=== PATIENT | female | born 1945 | race Caucasian/White ===

== ENCOUNTER → 2016-07-11 | Outpatient (CLI) | payer OTHER | END | disposition home or self-care (01) | LOC: CVU 11:31 | PROVIDERS: ATTEND Internal Medicine Cardiovascular Disease | DX: I10 Essential (primary) hypertension (principal); I49.40 Unspecified premature depolarization; I65.29 Occlusion and stenosis of unspecified carotid artery; I73.9 Peripheral vascular disease, unspecified | CPT/HCPCS: 93306; 93880; 93922; 93925 ==

== ENCOUNTER 2017-03-20 11:13 | Inpatient (IN) | payer OTHER ==
[~2017-03-20] VITALS: Ht 154.9 cm; Wt 60.6 kg
[~2017-03-20 11:13] MED LIST: ARFO15VI INH; ASPI-496 PO; BUDE0.5A INH; CALC-451 PO; FURO20TA3 PO; METO25TA35 PO; SIMV20TA3 PO; SPIR25TA3 PO; TIOT18CA INH
[2017-03-20] MEDS ORDERED: SODIUM CHLORIDE 0.9% 1,000 ML IV ONE ×2 (13:23→18:22)
[2017-03-20] MEDS ORDERED: ONDANSETRON 2MG/ML, 2ML IVPush ONE (13:30)
[2017-03-20] MEDS ORDERED: SODIUM CHLORIDE 0.9% 1,000ML IVBOLUS ONE (13:30)
[2017-03-20] MEDS ORDERED: SODIUM CHLORIDE FLUSH 10ML SYR IVF ONE (13:30)
[2017-03-20] MEDS ORDERED: HYDROmorphone 1 MG/ML, 1ML ONE ×2 (13:35→17:53)
[2017-03-20] MEDS ORDERED: ONDANSETRON 2MG/ML, 2ML ONE ×2 (13:35→20:06)
[2017-03-20] MEDS: HYDROmorphone 1 MG/ML, 1ML IVPush PRN ×2 (13:52→17:57)
[2017-03-20 13:59] LABS: BASOPHILS # (AUTO) 0.02 x10^3/uL (0-0.1); BASOPHILS % (AUTO) 0 % (0-1); EOSINOPHILS # (AUTO) 0.05 x10^3/uL (0-0.4); EOSINOPHILS % (AUTO) 0 % (1-7); LYMPHOCYTES # (AUTO) 1.23 x10^3/uL (1-3.4); LYMPHOCYTES % (AUTO) 8 % (22-44); MD NO; MEAN CORPUSCULAR HEMOGLOBIN 31.2 pg (27.0-34.8); MEAN CORPUSCULAR HGB CONC 32.8 g/dL (32.4-35.8); MEAN CORPUSCULAR VOLUME 94.9 fL (80-100); MEAN PLATELET VOLUME 8.6 fL (7.4-10.4); MONOCYTES % (AUTO) 5 % (2-9); NEUTROPHILS # (AUTO) 13.37 x10^3/uL (1.8-6.8); NEUTROPHILS % (AUTO) 87 % (42-75); PLATELET COUNT 264 x10^3/uL (130-400); RED BLOOD COUNT 4.32 x10^6/uL (3.82-5.3); RED CELL DISTRIBUTION WIDTH 12.3 % (9.6-15.2)
[2017-03-20 14:10] LABS: ALANINE AMINOTRANSFERASE 23 U/L (12-78); ALBUMIN 3.3 g/dL (3.4-5.0); ANION GAP 7 mmol/L (5-15); CALCIUM 9.1 mg/dL (8.5-10.1); CHLORIDE 101 mmol/L (98-107); CREATININE 0.83 mg/dL (0.55-1.02)
[2017-03-20 14:12] LABS: ALKALINE PHOSPHATASE 100 U/L (45-117); BILIRUBIN,TOTAL 0.4 mg/dL (0.2-1.0); TOTAL PROTEIN 7.4 g/dL (6.4-8.2)
[2017-03-20 14:23] LABS: MICROSCOPIC AUTO
[2017-03-20 14:32] LABS: CULTURE INDICATED? YES
[2017-03-20] MEDS ORDERED: OMNIPAQUE 350 MG/ML, 100ML BOTTLE ONE (17:12)
[2017-03-20] MEDS ORDERED: SODIUM CHLORIDE FLUSH 10ML SYR IVF PRN (18:30)
[2017-03-20] MEDS ORDERED: ONDANSETRON 2MG/ML, 2ML IVPush PRN ×2 (19:00→21:00)
[2017-03-20] MEDS ORDERED: BISACODYL 10 MG SUPP PR PRN (19:00)
[2017-03-20] MEDS: PIPERACILLIN/TAZO/PMX 3.375GM 50 ML IV SCH (19:00)
[2017-03-20] MEDS ORDERED: morphine SULFATE 10 MG/ML, 1ML IVPush PRN (19:00)
[2017-03-20] MEDS ORDERED: MIDAZOLAM 1 MG/ML, 2ML ONE (19:39)
[2017-03-20] MEDS ORDERED: FENTANYL PF 250 MCG/5ML ONE (19:39)
[2017-03-20] MEDS ORDERED: BUPIVACAINE/PF 0.5% ONE (19:59)
[2017-03-20] MEDS ORDERED: PROPOFOL 10 MG/ML, 20ML ONE (20:06)
[2017-03-20] MEDS ORDERED: NEOSTIGMINE 1 MG/ML, 10ML ONE (20:06)
[2017-03-20] MEDS ORDERED: KETOROLAC 30 MG/1 ML ONE (20:06)
[2017-03-20] MEDS ORDERED: GLYCOPYRROLATE 0.2MG/1ML, 5ML ONE (20:06)
[2017-03-20] MEDS ORDERED: DEXAMETHASONE 4 MG/ML, 1ML ONE (20:06)
[2017-03-20] MEDS ORDERED: SUCCINYLCHOLINE 20 MG/ML, 10ML ONE (20:06)
[2017-03-20] MEDS ORDERED: EPINEPHRINE 1 MG/ML, 1ML ONE (20:06)
[2017-03-20] MEDS ORDERED: ROCURONIUM 10 MG/ML,10ML ONE (20:06)
[2017-03-20] MEDS ORDERED: LIDOCAINE GEL 2%, 5ML ONE (20:08)
[2017-03-20] MEDS ORDERED: BUPIVACAINE/PF-EPI 0.5% 1:200K IM ONE (20:21)
[2017-03-20] MEDS ORDERED: LIDOCAINE-MPF 2% ,5ML ONE (20:44)
[2017-03-20] MEDS ORDERED: FENTANYL PF 100 MCG/2ML IV PRN (21:00)
[2017-03-20] MEDS ORDERED: PROMETHAZINE 25 MG/ML, 1ML IV PRN (21:00)
[2017-03-20] MEDS ORDERED: HYDROmorphone 1 MG/ML, 1ML IV PRN (21:00)
[2017-03-20] MEDS ORDERED: OXYcodone 5 MG/5 ML ORAL.SOL UDC PO PRN (21:00)
[2017-03-20] MEDS ORDERED: BUDESONIDE 0.5 MG/2 ML INHA INH SCH (21:00)
[2017-03-20] MEDS ORDERED: MIDAZOLAM 1 MG/ML, 5ML IV PRN (21:00)
[2017-03-20] MEDS ORDERED: MEPERIDINE/PF 25MG/0.5ML IVPush PRN (21:00)
[2017-03-20] MEDS ORDERED: ACETAMINOPHEN 325 MG TABLET PO PRN ×2 (21:00→23:45)
[2017-03-20] MEDS ORDERED: hydrALAzine 20 MG/ML, 1ML IV PRN ×2 (21:00→23:45)
[2017-03-20] MEDS ORDERED: LABETALOL 5MG/ML, 20ML IV PRN (21:00)
[2017-03-20] MEDS ORDERED: SIMVASTATIN 20 MG TABLET PO SCH (21:00)
[2017-03-20] MEDS ORDERED: ALBUTEROL/IPRATROPIUM 2.5MG/0.5MG, 3 ML NPPB PRN (21:00)
[2017-03-20] MEDS ORDERED: SUGAMMADEX 200 MG/2 ML IVPush ONE (21:05)
[2017-03-20] MEDS ORDERED: OXYcodone 5 MG/5 ML ORAL.SOL UDC ONE (21:30)
[2017-03-20] MEDS ORDERED: ACETAMINOPHEN 650 MG/20.3 ML UDC ONE (21:30)
[2017-03-20] MEDS ORDERED: FENTANYL PF 100 MCG/2ML ONE (21:57)
[2017-03-20 22:48] VITALS: BP 137/72
[2017-03-20 23:20] VITALS: BP 122/66
[2017-03-20] MEDS ORDERED: HEPARIN 5,000 UNITS/ML, 1ML SQ SCH (23:45)
[2017-03-20] MEDS ORDERED: ACETAMINOPHEN 650 MG SUPP PR PRN (23:45)
[2017-03-20] MEDS ORDERED: POTASSIUM CHLORIDE 20 MEQ in D5%-0.45% NACL 1,000 ML IV SCH (23:45)
[2017-03-21] MEDS: PIPERACILLIN/TAZO/PMX 3.375GM 50 ML IV SCH ×2 (00:42→07:24)
[2017-03-21] MEDS: HYDROcodone/APAP 5/325 TABLET PO PRN ×2 (01:34→11:47)
[2017-03-21 02:59] VITALS: BP 102/59
[2017-03-21 05:49] LABS: MEAN CORPUSCULAR HEMOGLOBIN 31.1 pg (27.0-34.8); MEAN CORPUSCULAR HGB CONC 32.7 g/dL (32.4-35.8); MEAN CORPUSCULAR VOLUME 95.2 fL (80-100); PLATELET COUNT 225 x10^3/uL (130-400); RED BLOOD COUNT 4.15 x10^6/uL (3.82-5.3); RED CELL DISTRIBUTION WIDTH 12.4 % (9.6-15.2)
[2017-03-21 06:12] LABS: CHLORIDE 103 mmol/L (98-107)
[2017-03-21 06:18] LABS: ALANINE AMINOTRANSFERASE 21 U/L (12-78); ALKALINE PHOSPHATASE 94 U/L (45-117); ANION GAP 6 mmol/L (5-15); BILIRUBIN,TOTAL 0.3 mg/dL (0.2-1.0); CALCIUM 8.2 mg/dL (8.5-10.1); CREATININE 1.06 mg/dL (0.55-1.02); TOTAL PROTEIN 6.7 g/dL (6.4-8.2)
[2017-03-21 06:29] LABS: BASOPHILS # (AUTO) 0.08 x10^3/uL (0-0.1); BASOPHILS % (AUTO) 1 % (0-1); EOSINOPHILS # (AUTO) 0.01 x10^3/uL (0-0.4); EOSINOPHILS % (AUTO) 0 % (1-7); LYMPHOCYTES # (AUTO) 0.66 x10^3/uL (1-3.4); LYMPHOCYTES % (AUTO) 4 % (22-44); MD SCAN; MONOCYTES # (AUTO) 0.13 x10^3/uL (0.2-0.8); MONOCYTES % (AUTO) 1 % (2-9); NEUTROPHILS # (AUTO) 16.11 x10^3/uL (1.8-6.8); NEUTROPHILS % (AUTO) 95 % (42-75)
[2017-03-21 07:22] VITALS: BP 120/71
[2017-03-21] MEDS ORDERED: METOPROLOL TARTRATE 25 MG TABLET PO SCH (09:00)
[2017-03-21] MEDS ORDERED: ARFORMOTEROL TARTRATE INH SCH (09:00)
[2017-03-21] MEDS ORDERED: FUROSEMIDE 20 MG TABLET PO SCH (09:00)
[2017-03-21] MEDS ORDERED: IPRATROPIUM 0.5 MG/2.5 ML INHA HHN SCH (09:00)
[2017-03-21] MEDS ORDERED: SPIRONOLACTONE 25 MG TABLET PO SCH (09:00)
[2017-03-21] MEDS ORDERED: CALCIUM/VITAMIN D3 250-125 TABLET PO SCH (09:00)
[2017-03-21 12:30] VITALS: BP 95/68
[2017-03-22] MEDS ORDERED: FISH OIL (03:47)
== END 2017-03-21 12:43 | disposition home or self-care (01) | DRG 853 ==
LOC: ED 13:55 → EDIP 18:22 → 4NOR 22:35
PROVIDERS: ADMIT Hospitalist; ATTEND Hospitalist
PROC: 0DTJ4ZZ Resection of Appendix, Percutaneous Endoscopic Approach (ICD-10-PCS; principal; 2017-03-20 19:00)
DX: A41.9 Sepsis, unspecified organism (principal); K35.3 Acute appendicitis with localized peritonitis; J96.10 Chronic respiratory failure, unspecified whether with hypoxia or hypercapnia; I11.0 Hypertensive heart disease with heart failure; I50.9 Heart failure, unspecified; D73.4 Cyst of spleen; E78.5 Hyperlipidemia, unspecified; J43.9 Emphysema, unspecified; K57.90 Diverticulosis of intestine, part unspecified, without perforation or abscess without bleeding; K66.0 Peritoneal adhesions (postprocedural) (postinfection); M47.9 Spondylosis, unspecified; Z87.891 Personal history of nicotine dependence; Z90.710 Acquired absence of both cervix and uterus; Z79.899 Other long term (current) drug therapy; Z88.5 Allergy status to narcotic agent
CPT/HCPCS: 36415; 74177; 80053; 81001; 83605; 83690; 85025; 87086; 88304; 93005; 96361; 96374; 96375; 96376; J0171; J1100; J1170; J1644; J1885; J2250; J2405; J2543; J2704; J2710; J3010; J3480; J3490; Q9967; J0330; J7030

== ENCOUNTER 2017-03-22 03:37 | Inpatient (IN) | payer OTHER ==
[~2017-03-22] VITALS: Ht 157.5 cm; Wt 54.0 kg
[2017-03-22] MEDS ORDERED: FISH OIL (03:47)
[2017-03-22] MEDS ORDERED: ONDANSETRON 2MG/ML, 2ML ONE (03:54)
[2017-03-22] MEDS ORDERED: morphine SULFATE 10 MG/ML, 1ML ONE ×2 (03:54→04:46)
[2017-03-22] MEDS ORDERED: methylPREDNISolone SOD SUCC 125 MG/2 ML ONE (03:58)
[2017-03-22] MEDS ORDERED: methylPREDNISolone SOD SUCC 125 MG/2 ML IVP ONE (04:00)
[2017-03-22] MEDS ORDERED: ONDANSETRON 2MG/ML, 2ML IVPush ONE (04:00)
[2017-03-22] MEDS ORDERED: SODIUM CHLORIDE 0.9% 1,000ML IVBOLUS ONE (04:00)
[2017-03-22] MEDS ORDERED: [UNRECOGNIZED DRUG - REMARK] MC SCH (04:00)
[2017-03-22] MEDS ORDERED: MORPHINE SULFATE 4 MG/ML, 1ML IVPush PRN (04:00)
[2017-03-22 04:08] LABS: BLOOD UREA NITROGEN 13 mg/dL (7-18)
[2017-03-22 04:16] LABS: IS PT STATUS REG ER OR PRE ER? YES
[2017-03-22 04:18] LABS: HEMATOCRIT 39.9 % (34.6-47.8); HEMOGLOBIN 13.1 g/dL (11.7-16.4); WHITE BLOOD COUNT 19.4 x10^3/uL (3.4-10)
[2017-03-22] MEDS ORDERED: morphine SULFATE 10 MG/ML, 1ML IVPush PRN (04:30)
[2017-03-22] MEDS ORDERED: OMNIPAQUE 350 MG/ML, 100ML BOTTLE ONE (04:35)
[2017-03-22] MEDS ORDERED: ACETAMINOPHEN 325 MG TABLET PO PRN (05:30)
[2017-03-22] MEDS ORDERED: ONDANSETRON 2MG/ML, 2ML IVPush PRN (05:30)
[2017-03-22] MEDS ORDERED: hydrALAzine 20 MG/ML, 1ML IVPush PRN (05:30)
[2017-03-22] MEDS ORDERED: NITROGLYCERIN 0.4 MG BOTTLE (25 TABS) SL PRN (05:30)
[2017-03-22 05:49] VITALS: BP 122/68
[2017-03-22 06:53] LABS: IS PT STATUS REG ER OR PRE ER? NO
[2017-03-22] MEDS ORDERED: IPRATROPIUM 0.5 MG/2.5 ML INHA NPPB SCH (07:30)
[2017-03-22] MEDS ORDERED: ALBUTEROL SULFATE 2.5 MG/3 ML NPPB SCH (07:30)
[2017-03-22] MEDS ORDERED: FUROSEMIDE 40 MG TABLET ONE (07:57)
[2017-03-22] MEDS ORDERED: ASPIRIN 81 MG TABLET EC ONE (07:57)
[2017-03-22] MEDS ORDERED: SPIRONOLACTONE 25 MG TABLET ONE (07:57)
[2017-03-22] MEDS ORDERED: METOPROLOL TARTRATE 25 MG TABLET ONE (07:57)
[2017-03-22 08:00] VITALS: BP 113/70
[2017-03-22] MEDS: CALCIUM/VITAMIN D3 250-125 TABLET PO SCH (08:04)
[2017-03-22] MEDS: SODIUM CHLORIDE 0.9% 1,000 ML IV SCH (08:04)
[2017-03-22] MEDS: FUROSEMIDE 20 MG TABLET PO SCH (08:05)
[2017-03-22] MEDS: METOPROLOL TARTRATE 25 MG TABLET PO SCH (08:05)
[2017-03-22] MEDS: SPIRONOLACTONE 25 MG TABLET PO SCH (08:05)
[2017-03-22] MEDS ORDERED: NITROGLYCERIN 5 MG/ML, 10ML ONE (08:12)
[2017-03-22] MEDS ORDERED: VERAPAMIL 2.5 MG/ML, 2ML ONE (08:12)
[2017-03-22] MEDS ORDERED: FENTANYL PF 100 MCG/2ML ONE (08:12)
[2017-03-22] MEDS ORDERED: TICAGRELOR 90 MG TABLET ONE (08:12)
[2017-03-22] MEDS ORDERED: MIDAZOLAM 1 MG/ML, 5ML ONE (08:12)
[2017-03-22] MEDS ORDERED: BIVALIRUDIN 250 MG ONE (08:13)
[2017-03-22] MEDS ORDERED: HEPARIN 1,000 UNITS/ML, 10ML ONE (08:13)
[2017-03-22] MEDS ORDERED: LIDOCAINE 2%, 20ML ONE (08:13)
[2017-03-22] MEDS ORDERED: ASPIRIN 81 MG TABLET EC PO SCH (09:00)
[2017-03-22] MEDS ORDERED: BUDESONIDE 0.5 MG/2 ML INHA INH SCH (09:00)
[2017-03-22 12:16] LABS: IS PT STATUS REG ER OR PRE ER? NO
[2017-03-22 15:20] VITALS: BP 95/64
[2017-03-22] MEDS ORDERED: ALBUTEROL SULFATE 2.5 MG/3 ML ONE (16:39)
[2017-03-22] MEDS: ALBUTEROL SULFATE 2.5 MG/3 ML NPPB PRN (16:56)
[2017-03-22 19:56] VITALS: BP 108/70
[2017-03-22] MEDS: TICAGRELOR 90 MG TABLET PO SCH (20:24)
[2017-03-22] MEDS: SIMVASTATIN 20 MG TABLET PO SCH (20:25)
[2017-03-23 00:17] VITALS: BP 103/64
[2017-03-23] MEDS: ALBUTEROL SULFATE 2.5 MG/3 ML NPPB PRN ×3 (00:32→14:20)
[2017-03-23 05:52] LABS: HEMATOCRIT 33.2 % (34.6-47.8); WHITE BLOOD COUNT 17.4 x10^3/uL (3.4-10)
[2017-03-23 06:02] LABS: BLOOD UREA NITROGEN 27 mg/dL (7-18)
[2017-03-23 06:53] VITALS: BP 116/75
[2017-03-23] MEDS ORDERED: methylPREDNISolone SOD SUCC 125 MG/2 ML ONE (07:54)
[2017-03-23] MEDS: morphine SULFATE 10 MG/ML, 1ML IVPush PRN ×4 (08:00→21:23)
[2017-03-23] MEDS: methylPREDNISolone SOD SUCC 125 MG/2 ML IVPush SCH ×3 (08:00→19:50)
[2017-03-23 08:12] LABS: ABG COLLECTION SITE RIGHT RADIAL; COLLATERAL CIRCULATION TESTING NORMAL
[2017-03-23] MEDS: SODIUM CHLORIDE 0.9% 1,000 ML IV SCH ×2 (09:05→23:51)
[2017-03-23] MEDS: METOPROLOL TARTRATE 25 MG TABLET PO SCH (09:05)
[2017-03-23] MEDS: SPIRONOLACTONE 25 MG TABLET PO SCH (09:05)
[2017-03-23] MEDS: ASPIRIN 81 MG TABLET EC PO SCH (09:06)
[2017-03-23] MEDS: TICAGRELOR 90 MG TABLET PO SCH ×2 (09:06→21:23)
[2017-03-23] MEDS: CALCIUM/VITAMIN D3 250-125 TABLET PO SCH (09:06)
[2017-03-23] MEDS: FUROSEMIDE 20 MG TABLET PO SCH (09:06)
[2017-03-23] MEDS: BUDESONIDE 0.5 MG/2 ML INHA INH SCH (10:18)
[2017-03-23] MEDS ORDERED: VANCOMYCIN PER PHARMACY MC PRN (11:00)
[2017-03-23] MEDS ORDERED: DIGOXIN 0.25 MG/ML, 2ML IVPush ONE (11:00)
[2017-03-23] MEDS ORDERED: PIPERACILLIN/TAZO 3.375 GM in SODIUM CHLORIDE 0.9% 50 ML IV SCH (12:00)
[2017-03-23] MEDS: PIPERACILLIN/TAZO 3.375 GM in SODIUM CHLORIDE 0.9% 50 ML IVPB SCH ×3 (12:18→23:51)
[2017-03-23] MEDS ORDERED: PHARMACOKINETIC MONITORING MC PRN (13:00)
[2017-03-23 13:05] VITALS: BP 94/60
[2017-03-23] MEDS: VANCOMYCIN PMX 1GM/200ML 200 ML IVPB SCH (13:08)
[2017-03-23] MEDS: ALBUTEROL SULFATE 2.5 MG/3 ML NPPB SCH (19:33)
[2017-03-23 19:38] VITALS: BP 106/62
[2017-03-23] MEDS: SIMVASTATIN 20 MG TABLET PO SCH (21:23)
[2017-03-24 01:07] VITALS: BP 100/60
[2017-03-24] MEDS: methylPREDNISolone SOD SUCC 125 MG/2 ML IVPush SCH ×4 (02:40→21:05)
[2017-03-24] MEDS: morphine SULFATE 10 MG/ML, 1ML IVPush PRN ×2 (03:17→10:09)
[2017-03-24] MEDS: ALBUTEROL SULFATE 2.5 MG/3 ML NPPB PRN (03:20)
[2017-03-24 04:46] LABS: HEMATOCRIT 33.7 % (34.6-47.8); HEMOGLOBIN 10.8 g/dL (11.7-16.4); WHITE BLOOD COUNT 14.1 x10^3/uL (3.4-10)
[2017-03-24 04:55] LABS: BLOOD UREA NITROGEN 22 mg/dL (7-18)
[2017-03-24] MEDS: PIPERACILLIN/TAZO 3.375 GM in SODIUM CHLORIDE 0.9% 50 ML IVPB SCH ×3 (05:25→18:03)
[2017-03-24 06:58] VITALS: BP 123/73
[2017-03-24] MEDS: ALBUTEROL SULFATE 2.5 MG/3 ML NPPB SCH ×4 (07:55→17:41)
[2017-03-24] MEDS: SPIRONOLACTONE 25 MG TABLET PO SCH (08:29)
[2017-03-24] MEDS: TICAGRELOR 90 MG TABLET PO SCH ×2 (08:29→21:00)
[2017-03-24] MEDS: ASPIRIN 81 MG TABLET EC PO SCH (08:29)
[2017-03-24] MEDS: CALCIUM/VITAMIN D3 250-125 TABLET PO SCH (08:29)
[2017-03-24] MEDS: METOPROLOL TARTRATE 25 MG TABLET PO SCH (08:30)
[2017-03-24] MEDS: BUDESONIDE 0.5 MG/2 ML INHA INH SCH (11:50)
[2017-03-24 13:13] VITALS: BP 109/65
[2017-03-24] MEDS: VANCOMYCIN PMX 1GM/200ML 200 ML IVPB SCH (13:31)
[2017-03-24] MEDS: SODIUM CHLORIDE 0.9% 1,000 ML IV SCH (14:30)
[2017-03-24 15:40] LABS: ABG COLLECTION SITE RIGHT BRACHIAL
[2017-03-24 18:18] LABS: BLOOD UREA NITROGEN 25 mg/dL (7-18)
[2017-03-24 18:54] LABS: ABG COLLECTION SITE RIGHT RADIAL; COLLATERAL CIRCULATION TESTING NORMAL
[2017-03-24] MEDS ORDERED: LORazepam 2 MG/ML, 1ML ONE (19:00)
[2017-03-24] MEDS ORDERED: LORazepam 2 MG/ML, 1ML IVPush ONE (19:00)
[2017-03-24] MEDS ORDERED: FUROSEMIDE 20 MG/2 ML IV ONE (20:00)
[2017-03-24] MEDS: SIMVASTATIN 20 MG TABLET PO SCH (21:00)
[2017-03-24] MEDS: LORazepam 2 MG/ML, 1ML IVPush PRN (23:02)
[2017-03-25] MEDS: PIPERACILLIN/TAZO 3.375 GM in SODIUM CHLORIDE 0.9% 50 ML IVPB SCH ×3 (01:13→12:30)
[2017-03-25] MEDS: LORazepam 2 MG/ML, 1ML IVPush PRN ×2 (03:38→13:56)
[2017-03-25 04:12] LABS: ABG COLLECTION SITE RIGHT RADIAL
[2017-03-25 04:13] LABS: COLLATERAL CIRCULATION TESTING NORMAL
[2017-03-25 04:26] LABS: ASPARTATE AMINO TRANSFERASE 25 U/L (15-37); BLOOD UREA NITROGEN 26 mg/dL (7-18)
[2017-03-25 04:36] LABS: HEMATOCRIT 29.8 % (34.6-47.8); HEMOGLOBIN 9.8 g/dL (11.7-16.4); WHITE BLOOD COUNT 9.9 x10^3/uL (3.4-10)
[2017-03-25] MEDS: SODIUM CHLORIDE 0.9% 1,000 ML IV SCH (04:42)
[2017-03-25] MEDS: methylPREDNISolone SOD SUCC 125 MG/2 ML IVPush SCH (06:09)
[2017-03-25] MEDS: TICAGRELOR 90 MG TABLET PO SCH (09:00)
[2017-03-25] MEDS: ASPIRIN 81 MG TABLET EC PO SCH (09:00)
[2017-03-25] MEDS ORDERED: METOPROLOL TARTRATE 25 MG TABLET PO SCH (09:00)
[2017-03-25] MEDS: CALCIUM/VITAMIN D3 250-125 TABLET PO SCH (09:00)
[2017-03-25] MEDS: BUDESONIDE 0.5 MG/2 ML INHA INH SCH (09:00)
[2017-03-25] MEDS: SPIRONOLACTONE 25 MG TABLET PO SCH (09:00)
[2017-03-25] MEDS: LORazepam 2 MG/ML, 1ML IV PRN ×2 (10:08→21:47)
[2017-03-25] MEDS ORDERED: SCOPOLAMINE 1MG PATCH TD SCH (13:00)
[2017-03-25] MEDS ORDERED: ATORVASTATIN 40 MG TABLET PO SCH (21:00)
[2017-03-26] MEDS: ATROPINE OPHTH SOLN 1%, 2ML PO PRN ×2 (05:02→06:26)
== END 2017-03-26 08:09 | disposition expired | DRG 853 ==
LOC: ED 03:50 → EDIP 05:06 → 5SO 05:44 → CCU 03-24 17:04 → 3NW 03-25 10:42
PROVIDERS: ADMIT Hospitalist; ATTEND Hospitalist
PROC: 4A023N7 Measurement of Cardiac Sampling and Pressure, Left Heart, Percutaneous Approach (ICD-10-PCS; principal; 2017-03-22)
PROC: 027034Z Dilation of Coronary Artery, One Artery with Drug-eluting Intraluminal Device, Percutaneous Approach (ICD-10-PCS; 2017-03-22)
PROC: B2111ZZ Fluoroscopy of Multiple Coronary Arteries using Low Osmolar Contrast (ICD-10-PCS; 2017-03-22)
PROC: B2151ZZ Fluoroscopy of Left Heart using Low Osmolar Contrast (ICD-10-PCS; 2017-03-22)
DX: A41.9 Sepsis, unspecified organism (principal); I21.09 ST elevation (STEMI) myocardial infarction involving other coronary artery of anterior wall; J15.6 Pneumonia due to other Gram-negative bacteria; N17.0 Acute kidney failure with tubular necrosis; J96.21 Acute and chronic respiratory failure with hypoxia; I11.0 Hypertensive heart disease with heart failure; G93.40 Encephalopathy, unspecified; E87.2 Acidosis; I50.9 Heart failure, unspecified; J96.22 Acute and chronic respiratory failure with hypercapnia; I48.92 Unspecified atrial flutter; J44.0 Chronic obstructive pulmonary disease with (acute) lower respiratory infection; J44.1 Chronic obstructive pulmonary disease with (acute) exacerbation; I25.110 Atherosclerotic heart disease of native coronary artery with unstable angina pectoris; I48.91 Unspecified atrial fibrillation; I25.5 Ischemic cardiomyopathy; Z51.5 Encounter for palliative care; Z66 Do not resuscitate; K27.9 Peptic ulcer, site unspecified, unspecified as acute or chronic, without hemorrhage or perforation; E78.5 Hyperlipidemia, unspecified; I49.3 Ventricular premature depolarization; Y95 Nosocomial condition; Z99.81 Dependence on supplemental oxygen; I25.2 Old myocardial infarction; Z79.82 Long term (current) use of aspirin; Z90.49 Acquired absence of other specified parts of digestive tract; Z90.710 Acquired absence of both cervix and uterus; Z95.5 Presence of coronary angioplasty implant and graft; Z88.5 Allergy status to narcotic agent; Z87.891 Personal history of nicotine dependence
CPT/HCPCS: 36415; 36600; 71010; 71275; 80048; 80053; 80061; 82040; 82803; 83735; 83880; 84100; 84484; 85025; 87081; 92978; 93005; 93306; 93458; 94640; 96361; 96374; 96375; 96376; 99156; 99157; C1753; C1760; C1769; C1894; C9600; J0583; J1644; J2250; J2270; J2405; J2543; J3010; J3370; J3490; J7613; J7626; Q9967; C1725; C1874; C1887; J1160; J1940; J2060; J2930; J7030